=== PATIENT | male | born 2000 | race Caucasian/White ===

== ENCOUNTER 2021-01-19 17:17 | Emergency (ER) | payer SELFPAY ==
[2021-01-19 17:28] VITALS: BP 113/57; PULSE 76; RESP 16; TEMP 36.5; O2SAT 95
--- NOTE | 2021-01-19 17:30 | DI.RAD_ITS ---
Exam(s) XR HAND RT COMPLETE EXAM: XR HAND RT COMPLETE CLINICAL HISTORY: pain post trauma. TECHNIQUE: 2D digital imaging was performed. COMPARISON: CR RIGHT HAND COMPLETE from 01/14/2017 FINDINGS: There is no evidence of acute fracture or dislocation. No radiopaque foreign body. Fracture of the base of the ulnar styloid is unchanged from 1999. No radiopaque foreign body. No osseous lesions. IMPRESSION: No acute fractures. DATA REPOSITORY: RADIATION DOSE DELIVERED:
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
--- NOTE | 2021-01-19 18:36 | DI.VRAD_ITS ---
PROCEDURE INFORMATION: Exam: XR Right Hand Exam date and time: 01/19/2021 5:36 PM Age: 20 years old Clinical indication: Other: Pain post trauma, pain right 2nd and 3rd mcp, dropped riding lawn mo TECHNIQUE: Imaging protocol: XR Right hand. Views: 3 or more views. 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 Old healed fractures of the metacarpal shafts. Soft tissues: Normal. IMPRESSION: No acute findings. Old fractures of the metacarpals and base of the ulnar styloid. Dictated and Authenticated by: Anahi Mauricio MD. Ordering:TYLER Smith MD
== END 2021-01-19 18:45 | disposition home or self-care (01) ==
PROVIDERS: Emergency Provider Physician Assistant; PCP Family Medicine
DX: S67.21XA Crushing injury of right hand, initial encounter (principal); S60.221A Contusion of right hand, initial encounter; W23.1XXA Caught, crushed, jammed, or pinched between stationary objects, initial encounter
CPT/HCPCS: 99283; 73130

== ENCOUNTER 2023-03-10 07:52 | Emergency (ER) | payer SELFPAY ==
[2023-03-10 07:57] VITALS: BP 108/65; PULSE 47; RESP 15; TEMP 36.6; O2SAT 100
--- NOTE | 2023-03-10 08:11 | DI.RAD_ITS ---
Exam(s) XR FOOT RT COMPLETE EXAM: XR FOOT RT COMPLETE CLINICAL HISTORY: trau medial and lateral aspect/metatarsal, wedge i. TECHNIQUE: 2D digital imaging was performed. Three views. COMPARISON: No exams were available for comparison FINDINGS: BONES: No acute fracture is present. No bony destructive lesion is seen. JOINTS: No dislocation present. SOFT TISSUE: Normal. IMPRESSION: Unremarkable radiographs of the right foot. DATA REPOSITORY: RADIATION DOSE DELIVERED:
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
== END 2023-03-10 09:04 | disposition home or self-care (01) ==
PROVIDERS: Emergency Provider Physician Assistant; PCP Nurse Practitioner Family
DX: L03.115 Cellulitis of right lower limb (principal)
CPT/HCPCS: 90471; 99283; 73630; 99284

== ENCOUNTER 2023-04-15 17:56 | Emergency (ER) | payer SELFPAY ==
[2023-04-15 17:59] VITALS: BP 121/53; PULSE 65; RESP 16; TEMP 37.7; O2SAT 95
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
[2023-04-15] MEDS: Fluorescein STRIPS 100/BOX 1 MG (18:26)
[2023-04-15] MEDS: Tetracaine 0.5% 4 ML BTL (18:26)
[2023-04-15] MEDS: Erythromycin Ophth Oint 3.5 GM TUBE OS (18:42)
[2023-04-15 18:45] VITALS: BP 118/54; PULSE 92; RESP 18; O2SAT 98
== END 2023-04-15 18:48 | disposition home or self-care (01) ==
PROVIDERS: Emergency Provider Nurse Practitioner Acute Care; PCP Nurse Practitioner Family
DX: S05.02XA Injury of conjunctiva and corneal abrasion without foreign body, left eye, initial encounter (principal); X58.XXXA Exposure to other specified factors, initial encounter
CPT/HCPCS: 99282

== ENCOUNTER 2025-07-19 19:20 | Emergency (ER) | payer SELFPAY ==
[2025-07-19 19:21] VITALS: BP 119/50; PULSE 71; RESP 16; TEMP 36.9; O2SAT 97
[2025-07-19] MEDS: Fluorescein STRIPS 100/BOX 1 MG OP (19:44)
[2025-07-19] MEDS: Tetracaine 0.5% 4 ML BTL OP (19:44)
[2025-07-19] MEDS: Balanced Salt Solution 15 ML BTL OP (19:44)
[2025-07-19] MEDS: Erythromycin Ophth Oint 3.5 GM TUBE OP (19:44)
[2025-07-19 19:46] VITALS: BP 119/50; PULSE 71; RESP 16; TEMP 36.9; O2SAT 97
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
[2025-07-19] MEDS: Tetanus & Diphtheria Tox,ADULT 0.5 ML VIAL IM (20:08)
== END 2025-07-19 20:12 | disposition home or self-care (01) ==
LOC: ER 20:28
PROVIDERS: Emergency Provider Emergency Medicine; PCP Nurse Practitioner Family
DX: T15.81XA Foreign body in other and multiple parts of external eye, right eye, initial encounter (principal)
CPT/HCPCS: 99283 ×2; 90471; 90714